=== PATIENT | female | born 1955 | race Caucasian/White ===

== ENCOUNTER → 2023-12-09 | Outpatient (CLI) | payer MEDICARE, BC ==
[~2023-12-09] MED LIST: CLARITIN 1010 MG/TAB PO; CORDARONE200 MG/TAB PO; COREG 6.256.25 MG/TA PO; ELIQUIS 5MG PO; ESTRACE0.1 MG/GM VG; LIPITOR 80MG80 MG PO; LOFIBRA200 MG PO; MACROBID 1100 MG/CAP PO; MULTI VITAMINS1 TAB PO; PRILOSEC 20MG20 MG PO; PROVENTIL0.09 MG/A1 IH; PROZAC 20MG20 MG PO; RT ADVAIR 128 DISKUS IH; TYLENOL PM EXTR1 TA1 PO; URSO FORTE500 MG PO; VITAMIND3 5000 PO; ZOFRAN 4MG T4 MG/TAB PO
== END ==
LOC: COL.RAD 10:21
DX: K74.3 Primary biliary cirrhosis (principal); N20.0 Calculus of kidney; K74.02 Hepatic fibrosis, advanced fibrosis